=== PATIENT | male | born 1990 | race American Indian/Alaskan Native ===

== ENCOUNTER 2016-11-13 20:44 | Emergency (ER) | payer SELFPAY ==
--- NOTE | 2016-11-14 01:00 | Emergency Department Report ---
HPI - General Chief Complaint: Dental/Oral Time Seen by Provider: 11/14/16 00:13 - HPI HPI: This is a 26 year-old male presents to the emergency department with a 2-3 day history of some left-sided facial swelling. He denies any dental pain or pain inside of the mouth but the outside of the face where the swelling is is painful to him. He denies any fever. He denies any past medical history. He has not taken anything for his symptoms prior to presentation. No drooling or trismus. He does not have a primary care physician. ED Past Medical Hx - Past Medical History Previous Medical History?: No - Surgical History Past Surgical History?: No - Social History Smoking Status: Current Every Day Smoker Substance Use Type: Alcohol - Medications Home Medications: Home Medications Medication Instructions Recorded Confirmed Last Taken Type Sulfamethoxazole/Trimethoprim 1 each PO BID #20 tablet 11/14/16 Unknown Rx [Bactrim DS TAB] ED Review of Systems ROS: Stated complaint: LT FACIAL SWELLING Other details as noted in HPI Comment: All other systems reviewed and negative Constitutional: denies: chills, fever Eyes: denies: eye pain, eye discharge, vision change ENT: denies: ear pain, throat pain Respiratory: denies: cough, shortness of breath, wheezing Cardiovascular: denies: chest pain, palpitations Gastrointestinal: denies: abdominal pain, nausea, diarrhea Genitourinary: denies: urgency, dysuria Musculoskeletal: denies: back pain, joint swelling, arthralgia Skin: other (left facial swelling). denies: rash Neurological: denies: headache, weakness, paresthesias Physical Exam - Physical Exam Vital Signs: Vital Signs 11/13/16 21:40 Temperature 97.9 F Pulse Rate 80 Respiratory 16 Rate Blood Pressure 136/90 O2 Sat by Pulse 100 Oximetry Physical Exam: GENERAL: The patient is well-developed well-nourished. HENT: Normocephalic. Atraumatic. Patient has moist mucous membranes. Oropharynx is clear. No drooling or trismus. No palpable or visible dental abscess. EYES: Extraocular motions are intact. Pupils equal reactive to light bilaterally. NECK: Supple. Trachea is midline. CHEST/LUNGS: Clear to auscultation. There is no respiratory distress noted. HEART/CARDIOVASCULAR: Regular. There is no tachycardia. There is no gallop rub or murmur. ABDOMEN: Abdomen is soft, nontender. Patient has normal bowel sounds. There is no abdominal distention. SKIN: There is some mild erythema, nonpitting swelling with induration to the left cheek. There is no fluctuance and no current bleeding, weeping or drainage. NEURO: The patient is awake, alert, and oriented. The patient is cooperative. The patient has no focal neurologic deficits. The patient has normal speech. MUSCULOSKELETAL: There is no tenderness or deformity. There is no limitation range of motion. There is no evidence of acute injury. ED Course Vital Signs 11/13/16 21:40 Temperature 97.9 F Pulse Rate 80 Respiratory 16 Rate Blood Pressure 136/90 O2 Sat by Pulse 100 Oximetry ED Medical Decision Making - Lab Data Result diagrams: 11/14/16 Unknown 11/14/16 Unknown - Radiology Data Radiology results: report reviewed CT of the facial bones with IV contrast shows extensive soft tissue cellulitis overlying the left cheek area. No evidence of abscess or osteomyelitis. Right frontal, ethmoidal and maxillary sinusitis. - Medical Decision Making 26-year-old male presents with a 2 day history of some swelling of the left lower to mid cheek. It is slightly tender to palpation. At first there was consideration of abscess versus mass as there is a circumferential area of swelling but it is not fluctuant and is in fact more indurated. A CT of the face with IV contrast was done that shows soft tissue cellulitis but no abscess or osteomyelitis. He was given some IV antibiotics while in the emergency department. Vital signs stable including being afebrile. Labs did not show any leukocytosis. For these reasons, and since it does not involve the orbital region, we will attempt to treat him in the outpatient setting. He'll be placed on antibiotics but he understands that he must keep close monitoring on this infection and if there are any signs of worsening, he develops a fever, that he will need to return to the emergency department for reevaluation. - Differential Diagnosis cellulitis, abscess, mass Critical Care Time: No Critical care attestation.: If time is entered above; I have spent that time in minutes in the direct care of this critically ill patient, excluding procedure time. ED Disposition Clinical Impression: Facial cellulitis Disposition: DC-01 TO HOME OR SELFCARE Is pt being admited?: No Condition: Stable Instructions: Cellulitis (ED) Additional Instructions: Please follow up with a primary care physician in the next few days. Return to the emergency Department with any worsening of the facial cellulitis/infection, development of fever or any acute distress. Take the antibiotics as prescribed. Prescriptions: Sulfamethoxazole/Trimethoprim [Bactrim DS TAB] 1 each PO BID #20 tablet Referrals: PRIMARY MD JULIA [Primary Care Provider] - 3-5 Days WALLY PETTY MD [Staff Physician] - 3-5 Days [facility] [Outside] - 3-5 Days [facility] [Outside] - 3-5 Days Time of Disposition: 04:33
[2016-11-14 01:42] LABS: Basophils % (Auto) 0.9 % (0.0-1.8); Eosinophils % (Auto) 3.9 % (0.0-4.3); Hematocrit 46.4 % (35.5-45.6); Hemoglobin 15.7 gm/dl (11.8-15.2); Mean Corpuscular HGB Conc 34 % (32-34); Mean Corpuscular Hemoglobin 29 pg (28-32); Mean Corpuscular Volume 85 fl (84-94); Platelet Count 189 K/mm3 (140-440); Red Blood Count 5.48 M/mm3 (3.65-5.03); Red Cell Distribution Width 13.6 % (13.2-15.2); White Blood Count 8.8 K/mm3 (4.5-11.0)
[2016-11-14 02:00] LABS: Anion Gap 18 mmol/L; BUN/Creatinine Ratio 14.44; Blood Urea Nitrogen 13 mg/dL (9-20); Calcium 9.4 mg/dL (8.4-10.2); Carbon Dioxide 26 mmol/L (22-30); Chloride 102.1 mmol/L (98-107); Glucose 82 mg/dL (75-100); Sodium 142 mmol/L (137-145)
[2016-11-14] MEDS ORDERED: VANCOMYCIN/NS 1 GM/250 ML 1 GM/250 ML BAG IV ONE (02:28)
[2016-11-14] MEDS ORDERED: NACL ONE (03:06)
[2016-11-14 04:44] VITALS: BP 117/76
--- NOTE | 2016-11-14 10:55 | Cat Scan Report ---
FINAL REPORT EXAM: CT FACIAL BONES W CON HISTORY: facial abscess vs mass TECHNIQUE: Routine imaging was obtained of the facial bones following intravenous injection of 100 cc of Omnipaque 300. Images were reviewed on soft tissue bone settings with coronal and parasagittal reconstructions. FINDINGS: There is soft tissue swelling extending from just below the left side of the zygomatic arch to the level of the mandible consisting of reticulation of the subcutaneous fat compatible with cellulitis. There is no evidence of abscess formation or osteomyelitis. There is no evidence of fracture. The sinuses reveal patchy areas of mucosal thickening and secretions in the right frontal, right ethmoidal and right maxillary sinuses. The orbital structures are unremarkable. There is normal enhancement of the cavernous sinuses. The mastoid air cells appear well pneumatized. IMPRESSION: Extensive soft tissue cellulitis overlying the left cheek area as described. No evidence of abscess or osteomyelitis. Right frontal, ethmoidal and maxillary sinusitis.
== END 2016-11-14 04:54 | disposition home or self-care (01) ==
LOC: ED 20:44
DX: L03.211 Cellulitis of face (principal); F17.210 Nicotine dependence, cigarettes, uncomplicated
CPT/HCPCS: 36415; 70487; 80048; 85025; 96365; 96366; 99284; J3370; Q9967